=== PATIENT | male | born 1970 | race Caucasian/White ===

== ENCOUNTER 2021-12-02 08:00 | Outpatient (CLI) | payer OTHER ==
--- NOTE | 2021-12-02 10:37 | XRAY Report ---
PROCEDURE: Finger(s) LT INDICATIONS: INJURY TO LEFT FINGER TECHNIQUE: AP hand, 2 views of the fifth finger(s) acquired. COMPARISON: None FINDINGS: Bones: Small calcification adjacent to medial periphery of fifth distal phalangeal tuft concerning fo r minimally displaced fracture in this area. No other fracture or dislocation. No suspicious bony les ions. Soft tissues: Soft tissue swelling surrounding mid to distal portion of fifth digit is seen. No susp icious soft tissue calcifications. IMPRESSION: Suggestion of minimally displaced fracture involving ulnar aspect of fifth distal phalangeal tuft. Reviewed by: Pop Anderson MD on 12/02/2021 10:36 AM PDT Approved by: Pop Anderson MD on 12/02/2021 10:36 AM PDT Station ID: [id number]
== END 2021-12-02 08:01 | disposition home or self-care (01) ==
LOC: DI.S 08:00
PROVIDERS: ATTEND Physician Assistant Medical
DX: S67.197A Crushing injury of left little finger, initial encounter (principal)